=== PATIENT | female | born 1995 | race African-American/Black ===

== ENCOUNTER 2017-09-15 20:44 | Emergency (ER) | payer MEDICAID, OTHER ==
[~2017-09-15] VITALS: Ht 160 cm; Wt 61.2 kg
[2017-09-15 21:56] LABS: Urine RBC None Seen /hpf (0 - 4)
[2017-09-15 22:11] LABS: Urine Bilirubin Negative (Negative); Urine Blood Negative /uL (Negative); Urine Color Yellow (Yellow); Urine Glucose Normal (Normal); Urine Ketone Negative (Negative); Urine Mucus FEW (None Seen); Urine Nitrite Negative (Negative); Urine Squamous Epithelial Cell MOD /hpf (<5); Urine Urobilinogen Normal (Negative); Urine pH 6.5 (5.0-8.0)
[2017-09-15 22:19] LABS: Basophils # (auto) 0 uL; Eosinophils # (auto) 0.4 uL; Lymphocytes # (auto) 1.9 uL; Mean Platelet Volume 8.2 fL (6.9-10.8); Neutrophils # (auto) 4.2 uL; Red Cell Distribution Width 18.5 % (11.8-14.3)
[2017-09-15 22:22] LABS: Basophils % (auto) 0.7 % (0.0-2.0); Eosinophils % (auto) 5.9 % (0.0-7.0); Hematocrit 39.2 % (36.0-46.0); Hemoglobin 12.9 g/dL (12.2-16.2); Lymphocytes % (auto) 27.3 % (10.0-50.0); Mean Corpuscular Hemoglobin 26.7 pg (28.0-32.0); Mean Corpuscular Volume 80.8 fL (80.0-100.0); Monocytes # (auto) 0.4 uL; Monocytes % (auto) 6.3 % (0.0-12.0); Neutrophils % (auto) 59.8 % (37.0-80.0); Nucleated Red Blood Cells % 0.1 %; Platelet Count (auto) 304 10^3/uL (140-450); White Blood Cell 7.1 10^3/uL (4.4-10.8)
[2017-09-15 22:30] LABS: Calcium 8.9 mg/dL (8.5-10.1); Potassium 4.1 mmol/L (3.5-5.1)
[2017-09-15 22:32] LABS: BUN/Creatinine Ratio 17.5
[2017-09-15] MEDS ORDERED: cefTRIAXone SODIUM 250 MG VL IM ONE (23:00)
[2017-09-15] MEDS ORDERED: AZITHROMYCIN 250 MG TAB PO ONE (23:00)
[2017-09-15 23:01] VITALS: BP 125/72
[2017-09-15] MEDS ORDERED: LIDOCAINE 1% HCL (LOCAL ANESTH.) INJ 20ML MDV ONE (23:06)
== END 2017-09-15 23:19 | disposition home or self-care (01) ==
LOC: ER 20:44
DX: O23.41 Unspecified infection of urinary tract in pregnancy, first trimester (principal); Z3A.00 Weeks of gestation of pregnancy not specified
CPT/HCPCS: 36415; 80048; 81001; 81025; 85025; 96372; 99284; J0696; J2001